=== PATIENT | male | born 1955 | race Two or more races ===

== ENCOUNTER → 2019-11-27 | Outpatient (CLI) | payer BC ==
[~2019-11-27] MED LIST: Avapro300 MG; BUME1 PO; CORTENEMA PR; EPLE25 PO; FLUT1DIS5 INH; K-Dur20 MEQ; LIALDA1.2 GM PO; LOPE2C PO; MAGCHL64ER; META800 PO; METF500C PO; MONT10T PO; MULTIPLE VITAM1 EACH PO; PANT40 PO; PRESERVISION A1 EACH PO; Phospha 250 Ne250 MG; TADALAFIL5 M1 PO
[2019-11-27 19:06] LABS: Adenovirus F 40/41 Not Detected (NOT DETECT); Astrovirus Not Detected (NOT DETECT); Campylobacter Sp Not Detected (NOT DETECT); Cryptosporidium Not Detected (NOT DETECT); Cyclospora Cayetanensis Not Detected (NOT DETECT); E. Coli O157 Not Detected (NOT DETECT); Entamoeba Histolytica Not Detected (NOT DETECT); Enteroaggregative E. coli-EAEC Not Detected (NOT DETECT); Enteropathogenic E. coli-EPEC Not Detected (NOT DETECT); Enterotoxigenic E. coli-ETEC Not Detected (NOT DETECT); Giardia Lamblia Not Detected (NOT DETECT); Norovirus GI/GII Not Detected (NOT DETECT); Plesiomonas Shigelloides Not Detected (NOT DETECT); Rotavirus A Not Detected (NOT DETECT); Salmonella Sp Not Detected (NOT DETECT); Sapovirus Not Detected (NOT DETECT); Shiga Toxin-prod E. coli-STEC Not Detected (NOT DETECT); Shigella/Enteroin E. coli-EIEC Not Detected (NOT DETECT); Vibrio Cholerae Not Detected (NOT DETECT); Vibrio Sp Not Detected (NOT DETECT); Yersinia Enterocolitica Not Detected (NOT DETECT)
== END | disposition home or self-care (01) ==
LOC: LAB SHORT 16:23 → LAB 16:23 → LAB FUT 11-18 17:20
PROVIDERS: Internal Medicine Gastroenterology
DX: K51.911 Ulcerative colitis, unspecified with rectal bleeding (principal)
CPT/HCPCS: 0097U; 83993

== ENCOUNTER 2019-11-28 11:50 | Day surgery (SDC) | payer BC ==
[~2019-11-28] VITALS: Ht 172.7 cm; Wt 110.3 kg
--- NOTE | 2019-11-28 14:24 | NUR ---
11/28/[address] ORDERED CHEST X-RAY AND LAB WORK TO BE DONE AT [facility]. PT STATED HE WOULD LEAVE THE SUR[facility]ERY [facility] AND WALK TO [facility] FOR HIS LABS AND X-RAY. PT SENT WITH THE ORDERS FROM DR HARLEY OFFICE AND RX.
== END 2019-11-28 14:22 | disposition home or self-care (01) ==
LOC: ORSCSDS 11:50
PROVIDERS: Internal Medicine Gastroenterology
PROC: 0DBE8ZX Excision of Large Intestine, Via Natural or Artificial Opening Endoscopic, Diagnostic (ICD-10-PCS; principal; 2019-11-28 12:45)
DX: K62.5 Hemorrhage of anus and rectum (principal); K52.9 Noninfective gastroenteritis and colitis, unspecified; K57.90 Diverticulosis of intestine, part unspecified, without perforation or abscess without bleeding; G47.33 Obstructive sleep apnea (adult) (pediatric); I10 Essential (primary) hypertension; K21.9 Gastro-esophageal reflux disease without esophagitis; K76.0 Fatty (change of) liver, not elsewhere classified; E88.81 Metabolic syndrome and other insulin resistance; E66.01 Morbid (severe) obesity due to excess calories; Z68.37 Body mass index [BMI] 37.0-37.9, adult; Z79.84 Long term (current) use of oral hypoglycemic drugs; Z79.899 Other long term (current) drug therapy
CPT/HCPCS: 82947; 88305; J2704; J7120